=== PATIENT | female | born 1965 | race Caucasian/White ===

== ENCOUNTER → 2017-08-16 | Outpatient (CLI) | payer OTHER ==
[~2017-08-16] MED LIST: ANAPROX DS550 MG PO; LIDEX0.05% T; MULTI VITAMINS1 TAB PO; PREDNICOT20 MG PO
== END | disposition home or self-care (01) ==
LOC: RAD 13:34
DX: R05 Cough (principal); R06.02 Shortness of breath; F17.200 Nicotine dependence, unspecified, uncomplicated

== ENCOUNTER → 2018-04-29 | Outpatient (CLI) | payer OTHER ==
--- NOTE | ~2018-04-29 | HM ---
[place], [place] HOLTER MONITOR REPORT NAME[id number] UNIT #: [id number] ROOM: DOCTOR: SHANE SMILEY MD BIRTHDATE: [birth year] DOS: 04/30/2018 This recording was obtained between 04/29/2018 and 04/30/2018. The recording was analyzed. This was interpreted and dictated all on 04/30/2018. PROCEDURE: A 24-hour Holter monitor. INDICATION: Vertigo, lightheadedness, and hypertension. FINDINGS: The basic rhythm was sinus with an average heart rate of 79 beats per minute. Sinus heart rate varied from 47 to 132 beats per minute. The maximum heart rate was recorded at 4:05 p.m. The minimum heart rate was recorded at 4:54 a.m. Occasional premature ventricular contractions were seen. These were all isolated. There was no ventricular tachycardia recorded. Rare premature atrial contractions were recorded. No SVT was seen. No prolonged pauses were recorded. The patient's diary only had one episode recorded. She stated that she felt lightheaded when looking up to hanging clock at 4:13 p.m. Monitor strip at that time showed sinus tachycardia with a rate of 109. No arrhythmias were seen. IMPRESSION: Normal 24-hour Holter monitor. SHANE SMILEY MD CM:HOLTER:HOLTER MONITOR REPORT [id number] SHANE SMILEY MD
== END | disposition home or self-care (01) ==
LOC: CARD 09:57
DX: I10 Essential (primary) hypertension (principal); J44.9 Chronic obstructive pulmonary disease, unspecified; R42 Dizziness and giddiness

== ENCOUNTER → 2018-05-03 | Outpatient (CLI) | payer OTHER | END | disposition home or self-care (01) | LOC: US 03:27 | DX: I65.23 Occlusion and stenosis of bilateral carotid arteries (principal); I10 Essential (primary) hypertension; J44.9 Chronic obstructive pulmonary disease, unspecified; R42 Dizziness and giddiness ==

== ENCOUNTER 2019-06-26 13:06 | Emergency (ER) | payer OTHER ==
[~2019-06-26] VITALS: Ht 152.4 cm; Wt 54.4 kg
[2019-06-26 14:32] LABS: BASO # 0.1 10*3/uL (0.0-0.1); BASO % 0.5 % (0.0-1.0); EOS # 0.1 10*3/uL (0.0-0.4); EOS % 1.1 % (1.0-4.0); HEMATOCRIT 44.8 % (37.0-47.0); HEMOGLOBIN 15.2 g/dl (12.0-16.0); LYMPH # 3.3 10*3/uL (1.3-4.4); LYMPH % 26.9 % (27.0-41.0); MEAN CELL VOLUME 90.3 fl (81.0-99.0); MEAN CORPUSCULAR HGB 30.6 pg (27.0-31.0); MEAN CORPUSCULAR HGB CONC 33.9 g/dl (33.0-37.0); MEAN PLATELET VOLUME 11.3 fl (9.6-12.3); MONO % 8.1 % (3.0-9.0); NEUT # 7.7 10*3/uL (2.3-7.9); NEUT % 63.1 % (47.0-73.0); PLATELET COUNT AUTOMATED 233 10*3/uL (130-400); RED BLOOD COUNT 4.96 10*6/uL (4.10-5.10); RED CELL DISTRI WIDTH 13.6 % (0-14.5); WHITE BLOOD COUNT 12.2 10*3/uL (4.8-10.8)
[2019-06-26 14:47] LABS: ALBUMIN 3.2 gm/dl (3.1-4.5); ALKALINE PHOSPHATASE 92 U/L (45-117); BUN 21 mg/dl (7-24); CHLORIDE 110 mmol/L (98-107); CREATININE 0.83 mg/dL (0.55-1.02); LIPASE 127 U/L (73-393); POTASSIUM 4.2 mmol/L (3.5-5.1); SGOT/AST 11 IU/L (3-35); SGPT/ALT 21 U/L (12-78); SODIUM 140 mmol/L (136-145); TOTAL PROTEIN 6.9 gm/dL (6.4-8.2)
[2019-06-26 15:07] LABS: BILIRUBIN NEGATIVE (NEGATIVE); BLOOD NEGATIVE (NEGATIVE); CLARITY SL CLOUDY (CLEAR); COLOR YELLOW (YELLOW); GLUCOSE NEGATIVE (NEGATIVE); KETONE NEGATIVE (NEGATIVE); LEUKO ESTERASE NEGATIVE (NEGATIVE); NITRITE NEGATIVE (NEGATIVE); UROBILINOGEN 0.2 E.U./dl (0.2-1.0)
[2019-06-26 15:20] LABS: EPITHELIAL CELLS 0-2
[2019-06-26] MEDS ORDERED: PREDNISONE50 MG PO (16:52)
[2019-06-26] MEDS ORDERED: CYCLOBENZAPRINE10 MG PO (16:52)
[2019-06-26] MEDS ORDERED: PERCOCET 5-3251 EACH PO (16:53)
== END 2019-06-26 17:23 | disposition home or self-care (01) ==
LOC: ED 13:06
PROVIDERS: Emergency Medicine
DX: S39.012A Strain of muscle, fascia and tendon of lower back, initial encounter (principal); F17.200 Nicotine dependence, unspecified, uncomplicated; Z79.899 Other long term (current) drug therapy; X50.0XXA Overexertion from strenuous movement or load, initial encounter; Y93.89 Activity, other specified; Y92.89 Other specified places as the place of occurrence of the external cause; Y99.8 Other external cause status

== ENCOUNTER 2019-12-27 14:15 | Inpatient (IN) | payer OTHER ==
[~2019-12-27] VITALS: Ht 157.5 cm; Wt 58.5 kg
[2019-12-27 14:15] VITALS: BP 141/74
[~2019-12-27 14:15] MED LIST changes: +CYCLOBENZAPRINE10 MG PO; +PERCOCET 5-3251 EACH PO; +PREDNISONE50 MG PO
[2019-12-27 14:51] LABS: BASO % 0.2 % (0.0-1.0); HEMATOCRIT 42.6 % (37.0-47.0); LYMPH % 5.7 % (27.0-41.0); MEAN CELL VOLUME 89.9 fl (81.0-99.0); MEAN CORPUSCULAR HGB 30.6 pg (27.0-31.0); MEAN PLATELET VOLUME 11.5 fl (9.6-12.3); MONO # 0.8 10*3/uL (0.1-1.0); MONO % 4.9 % (3.0-9.0); NEUT # 14.7 10*3/uL (2.3-7.9); NEUT % 88.5 % (47.0-73.0); PLATELET COUNT AUTOMATED 181 10*3/uL (130-400); RED BLOOD COUNT 4.74 10*6/uL (4.10-5.10); RED CELL DISTRI WIDTH 13.5 % (0-14.5); WHITE BLOOD COUNT 16.7 10*3/uL (4.8-10.8)
[2019-12-27 15:03] LABS: ACT PARTIAL THROMBO TIME 30.8 SECONDS (20.0-32.1); INTERNATIONAL NORM RATIO 1.1 (2.0-3.5)
[2019-12-27 15:09] LABS: ALBUMIN 2.8 gm/dl (3.1-4.5); ALKALINE PHOSPHATASE 82 U/L (45-117); BUN 13 mg/dl (7-24); CHLORIDE 102 mmol/L (98-107); CPK 124 U/L (26-192); CREATININE 0.82 mg/dL (0.55-1.02); LDH 155 U/L (84-246); POTASSIUM 3.6 mmol/L (3.5-5.1); SGOT/AST 17 IU/L (3-35); SGPT/ALT 20 U/L (12-78); SODIUM 132 mmol/L (136-145); TOTAL PROTEIN 7.4 gm/dL (6.4-8.2)
[2019-12-27 15:14] LABS: TROPONIN I < 0.015 ng/ml (<0.045)
[2019-12-27 15:31] VITALS: BP 136/77
[2019-12-27 17:39] VITALS: BP 119/70
[2019-12-27 18:26] VITALS: BP 121/71
[2019-12-27] MEDS ORDERED: AMLODIPINE BESYL5 MG PO (18:32)
[2019-12-27] MEDS ORDERED: VITAMIN D3125 MC1 PO (19:02)
[2019-12-27 20:00] VITALS: BP 143/73
[2019-12-28] VITALS: BP 131/75
[2019-12-28 05:21] LABS: ACT PARTIAL THROMBO TIME 34.6 SECONDS (20.0-32.1); INTERNATIONAL NORM RATIO 1.1 (2.0-3.5)
[2019-12-28 05:25] LABS: ALBUMIN 2.2 gm/dl (3.1-4.5); ALKALINE PHOSPHATASE 65 U/L (45-117); BUN 11 mg/dl (7-24); CHLORIDE 109 mmol/L (98-107); CHOLESTEROL 109 mg/dL (<200); CREATININE 0.72 mg/dL (0.55-1.02); HDL CHOLESTEROL 29 mg/dl (40-60); LDH 160 U/L (84-246); LDL CHOLESTEROL 59 mg/dL (9-159); POTASSIUM 3.5 mmol/L (3.5-5.1); SGOT/AST 20 IU/L (3-35); SGPT/ALT 29 U/L (12-78); SODIUM 139 mmol/L (136-145); TOTAL PROTEIN 6.2 gm/dL (6.4-8.2); TRIGLYCERIDES 103 mg/dl (<150); VLDL CHOLESTEROL 21 mg/dL (6-40)
[2019-12-28 05:27] LABS: FREE T4 0.99 ng/dl (0.76-1.46)
[2019-12-28 05:31] LABS: THYROID STIM HORMONE (HS) 0.935 uIU/ml (0.358-4.75)
[2019-12-28 06:14] LABS: VITAMIN D, 25-HYDROXY 62.4 ng/mL (30-100)
[2019-12-28 06:22] LABS: HEMATOCRIT 35.6 % (37.0-47.0); MEAN CELL VOLUME 90.8 fl (81.0-99.0); MEAN CORPUSCULAR HGB 30.6 pg (27.0-31.0); MEAN CORPUSCULAR HGB CONC 33.7 g/dl (33.0-37.0); MEAN PLATELET VOLUME 12.5 fl (9.6-12.3); PLATELET COUNT AUTOMATED 182 10*3/uL (130-400); RED BLOOD COUNT 3.92 10*6/uL (4.10-5.10); RED CELL DISTRI WIDTH 13.5 % (0-14.5); WHITE BLOOD COUNT 13.3 10*3/uL (4.8-10.8)
[2019-12-28 07:36] LABS: BASOPHILS 1 % (0-1); PLATELET SUFFICIENCY NORMAL (NORMAL); TOTAL CELLS COUNTED 100 #CELLS
[2019-12-28 08:00] VITALS: BP 121/53
[2019-12-28 12:00] VITALS: BP 116/59
[2019-12-28 15:57] LABS: BILIRUBIN 1+ (NEGATIVE); BLOOD 1+ (NEGATIVE); CLARITY CLEAR (CLEAR); COLOR YELLOW (YELLOW); GLUCOSE NEGATIVE (NEGATIVE); KETONE 3+ (NEGATIVE); LEUKO ESTERASE NEGATIVE (NEGATIVE); NITRITE NEGATIVE (NEGATIVE); SPECIFIC GRAVITY 1.025 (1.005-1.030); WBC 0-2 wbc/hpf (0-5)
[2019-12-28 15:58] LABS: BACTERIA TRACE; EPITHELIAL CELLS 21-30; MUCOUS TRACE
[2019-12-28 16:00] VITALS: BP 129/79
[2019-12-29] VITALS: BP 144/72
[2019-12-29 06:10] LABS: ALBUMIN 2.3 gm/dl (3.1-4.5); ALKALINE PHOSPHATASE 79 U/L (45-117); BUN 9 mg/dl (7-24); CHLORIDE 107 mmol/L (98-107); CREATININE 0.67 mg/dL (0.55-1.02); LDH 211 U/L (84-246); POTASSIUM 3.2 mmol/L (3.5-5.1); SGOT/AST 47 IU/L (3-35); SGPT/ALT 56 U/L (12-78); SODIUM 139 mmol/L (136-145); TOTAL PROTEIN 6.6 gm/dL (6.4-8.2)
[2019-12-29 06:12] LABS: BASO % 0.3 % (0.0-1.0); EOS # 0.1 10*3/uL (0.0-0.4); EOS % 0.7 % (1.0-4.0); HEMATOCRIT 37.4 % (37.0-47.0); LYMPH # 1.9 10*3/uL (1.3-4.4); LYMPH % 20.6 % (27.0-41.0); MEAN CELL VOLUME 91.4 fl (81.0-99.0); MEAN CORPUSCULAR HGB 29.8 pg (27.0-31.0); MEAN CORPUSCULAR HGB CONC 32.6 g/dl (33.0-37.0); MEAN PLATELET VOLUME 12.2 fl (9.6-12.3); MONO # 0.6 10*3/uL (0.1-1.0); MONO % 6.8 % (3.0-9.0); NEUT # 6.5 10*3/uL (2.3-7.9); NEUT % 71.2 % (47.0-73.0); PLATELET COUNT AUTOMATED 162 10*3/uL (130-400); RED BLOOD COUNT 4.09 10*6/uL (4.10-5.10); RED CELL DISTRI WIDTH 13.8 % (0-14.5); WHITE BLOOD COUNT 9.2 10*3/uL (4.8-10.8)
[2019-12-29 08:00] VITALS: BP 127/77
[2019-12-29 12:00] VITALS: BP 114/73
[2019-12-29 16:00] VITALS: BP 118/55
[2019-12-29 20:00] VITALS: BP 140/80
[2019-12-30] VITALS: BP 123/61
[2019-12-30 06:26] LABS: BASO % 0.3 % (0.0-1.0); EOS # 0.1 10*3/uL (0.0-0.4); EOS % 0.6 % (1.0-4.0); HEMATOCRIT 38.9 % (37.0-47.0); LYMPH # 1.8 10*3/uL (1.3-4.4); LYMPH % 17.8 % (27.0-41.0); MEAN CELL VOLUME 89.6 fl (81.0-99.0); MEAN CORPUSCULAR HGB 29.5 pg (27.0-31.0); MEAN CORPUSCULAR HGB CONC 32.9 g/dl (33.0-37.0); MEAN PLATELET VOLUME 12.2 fl (9.6-12.3); MONO # 0.9 10*3/uL (0.1-1.0); MONO % 9.2 % (3.0-9.0); NEUT # 7.1 10*3/uL (2.3-7.9); NEUT % 71.6 % (47.0-73.0); PLATELET COUNT AUTOMATED 175 10*3/uL (130-400); RED BLOOD COUNT 4.34 10*6/uL (4.10-5.10); RED CELL DISTRI WIDTH 13.7 % (0-14.5); WHITE BLOOD COUNT 9.9 10*3/uL (4.8-10.8)
[2019-12-30 06:45] LABS: ALBUMIN 2.4 gm/dl (3.1-4.5); BUN 8 mg/dl (7-24); CHLORIDE 102 mmol/L (98-107); POTASSIUM 3.6 mmol/L (3.5-5.1); SODIUM 136 mmol/L (136-145)
[2019-12-30 06:48] LABS: ALKALINE PHOSPHATASE 84 U/L (45-117); CREATININE 0.64 mg/dL (0.55-1.02); SGOT/AST 43 IU/L (3-35); SGPT/ALT 63 U/L (12-78); TOTAL PROTEIN 7.1 gm/dL (6.4-8.2)
[2019-12-30 08:00] VITALS: BP 120/72
[2019-12-30 12:00] VITALS: BP 120/77
[2019-12-30 16:00] VITALS: BP 114/64
[2019-12-30 20:00] VITALS: BP 113/62
[2019-12-31] VITALS: BP 121/76
[2019-12-31 05:30] LABS: ALBUMIN 2.4 gm/dl (3.1-4.5); ALKALINE PHOSPHATASE 81 U/L (45-117); BUN 11 mg/dl (7-24); CHLORIDE 104 mmol/L (98-107); CREATININE 0.67 mg/dL (0.55-1.02); LDH 241 U/L (84-246); POTASSIUM 3.4 mmol/L (3.5-5.1); SGOT/AST 38 IU/L (3-35); SGPT/ALT 72 U/L (12-78); SODIUM 138 mmol/L (136-145)
[2019-12-31 06:12] LABS: BASO % 0.1 % (0.0-1.0); HEMATOCRIT 35.6 % (37.0-47.0); LYMPH % 10.2 % (27.0-41.0); MEAN CELL VOLUME 87.9 fl (81.0-99.0); MEAN CORPUSCULAR HGB 30.1 pg (27.0-31.0); MEAN CORPUSCULAR HGB CONC 34.3 g/dl (33.0-37.0); MEAN PLATELET VOLUME 12.3 fl (9.6-12.3); MONO # 0.6 10*3/uL (0.1-1.0); MONO % 6.1 % (3.0-9.0); NEUT # 8.4 10*3/uL (2.3-7.9); NEUT % 82.4 % (47.0-73.0); PLATELET COUNT AUTOMATED 225 10*3/uL (130-400); RED BLOOD COUNT 4.05 10*6/uL (4.10-5.10); RED CELL DISTRI WIDTH 13.3 % (0-14.5); WHITE BLOOD COUNT 10.2 10*3/uL (4.8-10.8)
[2019-12-31 08:00] VITALS: BP 124/70; BP 128/66
[2019-12-31 12:00] VITALS: BP 117/58
[2019-12-31] MEDS ORDERED: ZITHROMAX250 MG PO (13:21)
[2019-12-31] MEDS ORDERED: OMNICEF300 MG PO (13:21)
[2019-12-31] MEDS ORDERED: PREDNISONE10 MG PO (13:21)
== END 2019-12-31 16:01 | disposition home or self-care (01) | DRG 720 ==
LOC: ED 14:15 → EDHOLD 15:45 → 4E 15:45
PROVIDERS: Emergency Medicine; Internal Medicine Critical Care Medicine; Student in an Organized Health Care Education/Training Program; ADMIT Family Medicine
DX: A41.9 Sepsis, unspecified organism (principal); J96.01 Acute respiratory failure with hypoxia; E43 Unspecified severe protein-calorie malnutrition; E87.1 Hypo-osmolality and hyponatremia; E83.41 Hypermagnesemia; Z20.828 Contact with and (suspected) exposure to other viral communicable diseases; J44.1 Chronic obstructive pulmonary disease with (acute) exacerbation; E83.39 Other disorders of phosphorus metabolism; J18.9 Pneumonia, unspecified organism; J44.0 Chronic obstructive pulmonary disease with (acute) lower respiratory infection; R65.20 Severe sepsis without septic shock; I10 Essential (primary) hypertension; R73.9 Hyperglycemia, unspecified; F17.210 Nicotine dependence, cigarettes, uncomplicated; E87.6 Hypokalemia; R74.0 Nonspecific elevation of levels of transaminase and lactic acid dehydrogenase [LDH]; Z71.6 Tobacco abuse counseling; Z88.8 Allergy status to other drugs, medicaments and biological substances; Z88.5 Allergy status to narcotic agent; Z90.710 Acquired absence of both cervix and uterus; Z83.3 Family history of diabetes mellitus; Z82.0 Family history of epilepsy and other diseases of the nervous system; Z68.23 Body mass index [BMI] 23.0-23.9, adult

== ENCOUNTER 2022-12-30 20:35 | Emergency (ER) | payer OTHER ==
[~2022-12-30 20:35] MED LIST changes: +AMLODIPINE BESYL5 MG PO; +OMNICEF300 MG PO; +PREDNISONE10 MG PO; +VITAMIN D3125 MC1 PO; +ZITHROMAX250 MG PO
== END 2022-12-30 21:06 | disposition home or self-care (01) ==
LOC: ED 20:35
DX: T16.2XXA Foreign body in left ear, initial encounter (principal); Z88.6 Allergy status to analgesic agent; Z88.8 Allergy status to other drugs, medicaments and biological substances; Z90.710 Acquired absence of both cervix and uterus; F17.210 Nicotine dependence, cigarettes, uncomplicated

== ENCOUNTER → 2024-04-08 | Outpatient (CLI) | payer OTHER | END | disposition home or self-care (01) | LOC: CT 13:00 | PROVIDERS: ATTEND Physician Assistant | DX: R91.1 Solitary pulmonary nodule (principal); J44.9 Chronic obstructive pulmonary disease, unspecified; I25.10 Atherosclerotic heart disease of native coronary artery without angina pectoris; J43.9 Emphysema, unspecified; F17.211 Nicotine dependence, cigarettes, in remission ==

== ENCOUNTER 2024-05-05 09:41 | Inpatient (IN) | payer OTHER ==
[~2024-05-05] VITALS: Ht 152.4 cm; Wt 77.8 kg
[2024-05-05 09:50] VITALS: BP 141/80
[2024-05-05 11:28] LABS: BASO % 0.1 % (0.0-1.0); EOS % 0.1 % (1.0-4.0); HEMATOCRIT 47.5 % (37.0-47.0); MEAN CELL VOLUME 87.5 fl (81.0-99.0); MEAN CORPUSCULAR HGB 28.7 pg (27.0-31.0); MEAN CORPUSCULAR HGB CONC 32.8 g/dl (33.0-37.0); MONO # 0.5 10*3/uL (0.1-1.0); MONO % 3.3 % (3.0-9.0); NEUT % 86.8 % (47.0-73.0); PLATELET COUNT AUTOMATED 285 10*3/uL (130-400); RED BLOOD COUNT 5.43 10*6/uL (4.10-5.10); RED CELL DISTRI WIDTH 13.7 % (0-14.5)
[2024-05-05 11:29] LABS: BILIRUBIN Negative (Negative); BLOOD Negative (Negative); CLARITY Clear (Clear); COLOR Yellow (Yellow); GLUCOSE Negative (Negative); KETONE Negative (Negative); LEUKO ESTERASE Negative (Negative); NITRITE Negative (Negative); PH 5.5 (4.5-8.0); SPECIFIC GRAVITY 1.025 (1.001-1.030); UROBILINOGEN 0.2 E.U./dl (0.0-1.0)
[2024-05-05] MEDS ORDERED: SODIUM CHLORIDE 0.9% 1,000 ML IV SCH (11:35)
[2024-05-05 11:41] LABS: BACTERIA 1+
[2024-05-05 11:42] LABS: MUCOUS 2+
[2024-05-05 11:48] LABS: BUN 15 mg/dl (9-23); CHLORIDE 104 mmol/L (98-107); POTASSIUM 3.8 mmol/L (3.4-5.1)
[2024-05-05] MEDS ORDERED: Ceftriaxone Sodium 1 GM/10 ML SYR IV ONE (12:25)
[2024-05-05] MEDS ORDERED: Ondansetron Hydrochloride 4 MG/2 ML VIAL IV ONE (13:45)
[2024-05-05] MEDS ORDERED: IOHEXOL 300 MG/ML 100 ML VIAL IV ONE (13:50)
[2024-05-05] MEDS ORDERED: IOHEXOL 300 MG/ML 100 ML VIAL ONE (14:18)
[2024-05-05] MEDS ORDERED: Ondansetron Hydrochloride 4 MG/2 ML VIAL IV PRN (14:50)
[2024-05-05] MEDS ORDERED: MORPHINE Sulfate 2 MG/ML SYR IV PRN (14:50)
[2024-05-05] MEDS ORDERED: SODIUM CHLORIDE 0.9% 500 ML IV SCH (16:00)
[2024-05-05 16:55] VITALS: BP 137/71
[2024-05-05 20:30] VITALS: BP 148/73
[2024-05-06] VITALS: BP 144/65
[2024-05-06] MEDS ORDERED: Pantoprazole Sodium 40 MG VIAL IV SCH (06:00)
[2024-05-06 06:41] LABS: BASO # 0.1 10*3/uL (0.0-0.1); BASO % 0.4 % (0.0-1.0); EOS # 0.1 10*3/uL (0.0-0.4); EOS % 0.4 % (1.0-4.0); HEMATOCRIT 41.8 % (37.0-47.0); MEAN CELL VOLUME 87.1 fl (81.0-99.0); MEAN CORPUSCULAR HGB CONC 33.3 g/dl (33.0-37.0); MEAN PLATELET VOLUME 11.4 fl (9.6-12.3); MONO # 1.3 10*3/uL (0.1-1.0); MONO % 8.8 % (3.0-9.0); NEUT # 10.7 10*3/uL (2.3-7.9); NEUT % 70.7 % (47.0-73.0); PLATELET COUNT AUTOMATED 247 10*3/uL (130-400); WHITE BLOOD COUNT 15.2 10*3/uL (4.8-10.8)
[2024-05-06 07:27] LABS: ALKALINE PHOSPHATASE 79 U/L (46-116); BUN 8 mg/dl (9-23); CHLORIDE 105 mmol/L (98-107); CHOLESTEROL 163 mg/dL (<200); FREE T4 1.02 ng/dl (0.89-1.76); LDL CHOLESTEROL 96 mg/dL (9-159); LIPASE 160 U/L (12-53); POTASSIUM 3.3 mmol/L (3.4-5.1); SGPT/ALT 18 U/L (5-49); TOTAL PROTEIN 6.5 gm/dL (6.0-8.0); TRIGLYCERIDES 124 mg/dl (<150)
[2024-05-06 07:57] LABS: VITAMIN D, 25-HYDROXY 36.3 ng/mL (30-100)
[2024-05-06 08:00] VITALS: BP 147/74
[2024-05-06] MEDS ORDERED: amLODIPine besylate 5 MG TAB PO SCH (10:00)
[2024-05-06] MEDS ORDERED: POTASSIUM CHLORIDE 20 MEQ TAB PO ONE (11:25)
[2024-05-06 12:00] VITALS: BP 134/73
[2024-05-06] MEDS ORDERED: Ceftriaxone Sodium 1 GM in SYRINGE INFUSION 10 ML IV SCH (12:00)
[2024-05-06] MEDS ORDERED: SODIUM CHLORIDE 0.9% 500 ML IV SCH (12:00)
[2024-05-06 16:00] VITALS: BP 144/73
[2024-05-06 20:00] VITALS: BP 145/70
[2024-05-07] VITALS: BP 137/62
[2024-05-07 08:00] VITALS: BP 120/50
[2024-05-07 08:06] LABS: BASO # 0.1 10*3/uL (0.0-0.1); BASO % 0.4 % (0.0-1.0); EOS # 0.1 10*3/uL (0.0-0.4); EOS % 0.5 % (1.0-4.0); HEMATOCRIT 43.5 % (37.0-47.0); MEAN CELL VOLUME 88.6 fl (81.0-99.0); MEAN CORPUSCULAR HGB 29.3 pg (27.0-31.0); MEAN CORPUSCULAR HGB CONC 33.1 g/dl (33.0-37.0); MEAN PLATELET VOLUME 10.9 fl (9.6-12.3); MONO # 1.4 10*3/uL (0.1-1.0); MONO % 8.7 % (3.0-9.0); NEUT # 11.2 10*3/uL (2.3-7.9); NEUT % 70.8 % (47.0-73.0); PLATELET COUNT AUTOMATED 244 10*3/uL (130-400); RED BLOOD COUNT 4.91 10*6/uL (4.10-5.10); RED CELL DISTRI WIDTH 13.6 % (0-14.5); WHITE BLOOD COUNT 15.8 10*3/uL (4.8-10.8)
[2024-05-07 08:25] LABS: BUN 7 mg/dl (9-23); CHLORIDE 106 mmol/L (98-107); POTASSIUM 3.6 mmol/L (3.4-5.1)
[2024-05-07] MEDS ORDERED: Piperacillin Sodium/Tazobact 50 ML IV SCH (10:00)
[2024-05-07 12:00] VITALS: BP 119/53
[2024-05-07 16:00] VITALS: BP 130/60
[2024-05-07 20:00] VITALS: BP 113/52
[2024-05-08] VITALS: BP 120/54
[2024-05-08 06:31] LABS: BASO # 0.1 10*3/uL (0.0-0.1); BASO % 0.4 % (0.0-1.0); EOS # 0.1 10*3/uL (0.0-0.4); EOS % 0.7 % (1.0-4.0); HEMATOCRIT 40.7 % (37.0-47.0); MEAN CELL VOLUME 87.2 fl (81.0-99.0); MEAN CORPUSCULAR HGB 28.9 pg (27.0-31.0); MEAN CORPUSCULAR HGB CONC 33.2 g/dl (33.0-37.0); MEAN PLATELET VOLUME 11.2 fl (9.6-12.3); MONO # 1.3 10*3/uL (0.1-1.0); MONO % 8.4 % (3.0-9.0); NEUT # 11.3 10*3/uL (2.3-7.9); NEUT % 73.4 % (47.0-73.0); PLATELET COUNT AUTOMATED 227 10*3/uL (130-400); RED BLOOD COUNT 4.67 10*6/uL (4.10-5.10); RED CELL DISTRI WIDTH 13.3 % (0-14.5); WHITE BLOOD COUNT 15.3 10*3/uL (4.8-10.8)
[2024-05-08 06:32] LABS: ALKALINE PHOSPHATASE 73 U/L (46-116); BUN 9 mg/dl (9-23); CHLORIDE 103 mmol/L (98-107); LIPASE 33 U/L (12-53); POTASSIUM 3.4 mmol/L (3.4-5.1); SGPT/ALT 16 U/L (5-49); TOTAL PROTEIN 6.7 gm/dL (6.0-8.0)
[2024-05-08 08:00] VITALS: BP 125/72
[2024-05-08] MEDS ORDERED: IOHEXOL 300 MG/ML 100 ML VIAL IV ONE (10:05)
[2024-05-08] MEDS ORDERED: BISACODYL 5 MG TAB PO PRN (10:55)
[2024-05-08] MEDS ORDERED: BARIUM SULFATE 2% 450 ML BOT PO SCH (11:00)
[2024-05-08 12:00] VITALS: BP 125/51
[2024-05-08 16:00] VITALS: BP 132/65
[2024-05-08 20:00] VITALS: BP 124/56
[2024-05-08] MEDS ORDERED: DOCUSATE SODIUM 100 MG CAP PO SCH (22:00)
[2024-05-09] VITALS: BP 132/72
[2024-05-09 06:57] LABS: BASO # 0.1 10*3/uL (0.0-0.1); BASO % 0.4 % (0.0-1.0); EOS # 0.2 10*3/uL (0.0-0.4); EOS % 1.3 % (1.0-4.0); HEMATOCRIT 42.9 % (37.0-47.0); MEAN CORPUSCULAR HGB 29.2 pg (27.0-31.0); MEAN CORPUSCULAR HGB CONC 33.6 g/dl (33.0-37.0); MEAN PLATELET VOLUME 11.3 fl (9.6-12.3); MONO # 1.1 10*3/uL (0.1-1.0); MONO % 8.5 % (3.0-9.0); NEUT # 9.4 10*3/uL (2.3-7.9); NEUT % 73.2 % (47.0-73.0); PLATELET COUNT AUTOMATED 246 10*3/uL (130-400); RED BLOOD COUNT 4.93 10*6/uL (4.10-5.10); RED CELL DISTRI WIDTH 13.2 % (0-14.5); WHITE BLOOD COUNT 12.8 10*3/uL (4.8-10.8)
[2024-05-09 07:14] LABS: BUN 10 mg/dl (9-23); CHLORIDE 104 mmol/L (98-107); POTASSIUM 3.5 mmol/L (3.4-5.1)
[2024-05-09 08:00] VITALS: BP 138/78
[2024-05-09 12:00] VITALS: BP 142/72
[2024-05-09 16:00] VITALS: BP 129/69
[2024-05-09] MEDS ORDERED: IBUPROFEN 400 MG TAB PO ONE (17:35)
[2024-05-09 20:00] VITALS: BP 132/75
[2024-05-10] VITALS: BP 129/73
[2024-05-10 08:00] VITALS: BP 120/76
[2024-05-10 12:00] VITALS: BP 127/80
[2024-05-10] MEDS ORDERED: PROTONIX40 MG PO (12:10)
[2024-05-10] MEDS ORDERED: AMOX-CLAV 875-1 EACH PO (12:10)
== END 2024-05-10 13:34 | disposition home or self-care (01) | DRG 720 ==
LOC: ED 09:41 → 4E 12:53 → EDHOLD 12:53 → 4E 19:59
PROVIDERS: Internal Medicine; Registered Nurse; ADMIT Student in an Organized Health Care Education/Training Program; ATTEND Student in an Organized Health Care Education/Training Program
DX: A41.9 Sepsis, unspecified organism (principal); K85.90 Acute pancreatitis without necrosis or infection, unspecified; K29.80 Duodenitis without bleeding; A08.4 Viral intestinal infection, unspecified; Z88.6 Allergy status to analgesic agent; Z88.8 Allergy status to other drugs, medicaments and biological substances; Z90.710 Acquired absence of both cervix and uterus; Z83.3 Family history of diabetes mellitus; Z82.49 Family history of ischemic heart disease and other diseases of the circulatory system

== ENCOUNTER → 2024-11-04 | Outpatient (CLI) | payer OTHER ==
[~2024-11-04] MED LIST changes: +AMOX-CLAV 875-1 EACH PO; +PROTONIX40 MG PO
== END | disposition home or self-care (01) ==
LOC: RAD 16:42
PROVIDERS: ATTEND Family Medicine
DX: S62.634D Displaced fracture of distal phalanx of right ring finger, subsequent encounter for fracture with routine healing (principal); M79.89 Other specified soft tissue disorders; X58.XXXD Exposure to other specified factors, subsequent encounter

== ENCOUNTER → 2025-01-12 | Outpatient (CLI) | payer OTHER | END | disposition home or self-care (01) | LOC: CT 10:41 | PROVIDERS: ATTEND Internal Medicine Critical Care Medicine | DX: R91.8 Other nonspecific abnormal finding of lung field (principal); I25.10 Atherosclerotic heart disease of native coronary artery without angina pectoris ==